=== PATIENT | male | born 1950 | race Caucasian/White ===

== ENCOUNTER 2017-01-04 19:09 | Emergency (ER) | payer MEDICAID, MEDICARE ==
[~2017-01-04] VITALS: Ht 167.6 cm; Wt 71.0 kg
[~2017-01-04 19:09] MED LIST: AMLO1TAB PO; ASPI-664 PO; DICY20TA59 PO; DULA0.75 SQ; ESOM40CA PO; EZET10TA3 PO; GLIM4TAB PO; LANT3I SC; LORA0.5T PO; METO25TA4 PO; SIMV40TA2 PO; ZOLP5TAB6 PO
[2017-01-04 20:19] VITALS: Ht 167.6 cm; Wt 71.0 kg
== END 2017-01-05 04:00 | disposition left against medical advice (07) ==
LOC: E/R 19:09
DX: Z53.21 Procedure and treatment not carried out due to patient leaving prior to being seen by health care provider (principal)

== ENCOUNTER 2017-02-09 19:31 | Emergency (ER) | payer MEDICARE ==
[~2017-02-09] VITALS: Ht 165.1 cm; Wt 69.5 kg
[2017-02-09 19:34] VITALS: Ht 165.1 cm; Wt 69.5 kg
[2017-02-09] MEDS ORDERED: morphine 4 MG/ML VIAL IV STA (22:16)
[2017-02-09 22:39] LABS: ADD SCAN DIFF NO; BASOPHILS % 0.5 % (0.0-2.0); EOSINOPHILS # 0.2 10^3/ul (0.0-0.5); EOSINOPHILS % 2.7 % (0.0-7.0); HEMATOCRIT 43.9 % (42.0-52.0); HEMOGLOBIN 14.9 g/dl (14.0-18.0); LYMPHOCYTES % 34.9 % (15.0-51.0); MEAN CORPUSCULAR HEMOGLOBIN 30.7 pg (29.0-33.0); MEAN CORPUSCULAR HGB CONC 33.9 g/dl (32.0-37.0); MEAN CORPUSCULAR VOLUME 90.5 fl (82.0-101.0); MONOCYTE # 0.5 10^3/ul (0.3-0.9); MONOCYTES % 7.7 % (0.0-11.0); NEUTROPHIL # 3.1 10^3/ul (1.6-7.5); NEUTROPHILS % 53.9 % (39.0-77.0); PLATELET COUNT 251 10^3/UL (140-415); RED BLOOD COUNT 4.85 10^6/ul (4.70-6.10); RED CELL DISTRIBUTION WIDTH 13.7 % (11.5-14.5); WHITE BLOOD COUNT 5.8 10^3/ul (4.8-10.8)
[2017-02-09 22:47] LABS: ADD UMIC YES; URINE BILIRUBIN (Dip) NEGATIVE (NEGATIVE); URINE BLOOD (Dip) 1+ (NEGATIVE); URINE COLOR LT. YELLOW (YELLOW); URINE GLUCOSE (Dip) NEGATIVE (NEGATIVE); URINE KETONES (Dip) NEGATIVE (NEGATIVE); URINE LEUKOCYTE ESTERASE (Dip) NEGATIVE (NEGATIVE); URINE NITRITE (Dip) NEGATIVE (NEGATIVE); URINE TOTAL PROTEIN (Dip) NEGATIVE (NEGATIVE); URINE UROBILINOGEN (Dip) 0.2 E.U./dL (0.1-1.0)
[2017-02-09 22:50] LABS: ALBUMIN 4.3 g/dl (3.3-4.9); INR 0.93; PROTIME 12.5 Sec (12.2-14.2)
[2017-02-09 22:51] LABS: PARTIAL THROMBOPLASTIN TIME 27.5 Sec (25.0-35.0); POTASSIUM 4.3 mmol/L (3.5-5.1)
[2017-02-09 22:53] LABS: ALBUMIN/GLOBULIN RATIO 1.38; BILIRUBIN,INDIRECT 0.6 mg/dl (0-1.1); BILIRUBIN,TOTAL 0.6 mg/dl (0.2-1.3); CREATININE 1.07 mg/dl (0.61-1.24); TOTAL PROTEIN 7.4 g/dl (6.1-8.1)
[2017-02-09 22:54] LABS: CALCIUM 9.3 mg/dl (8.4-10.2)
[2017-02-09] MEDS ORDERED: SOD CHLORIDE 0.9% 100 ML ONE (23:15)
[2017-02-09] MEDS ORDERED: IOHEXOL 100 ML ONE (23:15)
--- NOTE | 2017-02-10 00:11 | RADRPT ---
PROCEDURE: XR Chest. CLINICAL INDICATION: Pain. TECHNIQUE: Single frontal chest x-ray. COMPARISON: 10/18/2016 FINDINGS: Heart is enlarged.. There is minimal bibasilar atelectasis.. No focal infiltrate is seen. There is no pleural effusion. There is no pneumothorax. The osseous structures are unremarkable. IMPRESSION: Cardiomegaly. Minimal bibasilar atelectasis. RPTAT: HMVK .Lele Acosta MD, Date Time Electronically viewed and signed by .Lele Acosta MD, on 02/10/2017 00:11 .K/
--- NOTE | 2017-02-10 01:06 | RADRPT ---
PROCEDURE: CT Angiogram Abdomen and Pelvis with IV contrast. CLINICAL INDICATION: Bilateral flank and back pain. TECHNIQUE: CT scan of the abdomen and pelvis was performed on a multidetector CT scanner. The pat ient was scanned following the uncomplicated administration of 95 cc Omnipaque-300 50 intravenous co ntrast material. 3D, Coronal and sagittal reformatted images were obtained from the axial source im ages. Images were reviewed on a high-resolution PACS workstation. Exam CTDlvol = 31 mGy and DLP = 5 00 mGy-cm. COMPARISON: CT chest 03/13/2016, CT abdomen pelvis 11/23/2013, 11/26/2004 FINDINGS: CTA abdomen/pelvis: The abdominal aorta is normal caliber. There is no aortic aneurysm or dissection. There is redemons trated diffuse aneurysmal wall thickening and irregular plaque with scattered calcifications, increa sed as compared to 11/23/2013. The celiac trunk is patent and normal in appearance. Both the superio r and inferior mesenteric arteries are normal in appearance. Bilateral renal arteries are normal in appearance. The bilateral common iliac arteries moderate plaque with mild stenosis and without occlu hope. The external iliac arteries are normal in appearance. There is mild stenosis of the proximal common femoral arteries. CT abdomen/pelvis: The liver is mildly enlarged and 17.8 cm length and mildly hypodense/fatty.. No intrahepatic lesion s are identified. The gallbladder is normal in appearance. There is no definite biliary ductal dilat ion. Pancreas is unremarkable. Spleen is normal in size and appearance. There are no adrenal mass es. The aorta is unremarkable. Kidneys are normal in appearance without hydronephrosis, mass or calculus. There is normal symmetri c homogeneous renal parenchymal enhancement. There is no perinephric collection. Ureters are of no rmal caliber in appearance. Urinary bladder is unremarkable. There is no obstruction or ileus. The appendix is not visualized. There is no secondary evidence f or appendicitis. There are few colonic diverticuli without evidence for diverticulitis. There is n o free fluid. There is no lymphadenopathy. Limited evaluation lung bases demonstrates bibasilar atelectasis. There punctate parenchymal calcif ications. There are mild degenerate changes of the lumbar spine. IMPRESSION: 1. No abdominal aortic aneurysm or dissection. 2. Increased diffuse abdominal aortic aneurysmal wall thickening with partially calcified plaque. Appearance is suggestive of a chronic aortic hiatus in addition to atherosclerotic plaque. 3. Mild stenosis of the bilateral common iliac arteries and common femoral arteries. 4. Enlarged fatty liver. 5. No obstructive uropathy. Number 6 no bowel obstruction or ileus. 7. Few colonic diverticuli without evidence for diverticulitis. 8. Appendix not identified. No secondary evidence for appendicitis. 9. Mild degenerate changes of the lumbar spine. 10. Bibasilar atelectasis. Lung parenchymal calcifications compatible with granulomas. RPTAT: HMVK .Lele Acosta MD, Date Time Electronically viewed and signed by .Lele Acosta MD, on 02/10/2017 01:06 .K/
[2017-02-10] MEDS ORDERED: CYCL5TAB PO (01:39)
[2017-02-10] MEDS ORDERED: HYDR-906 PO (01:39)
--- NOTE | 2017-02-10 01:53 | ERD ---
ER Documentation Chief Complaint Date/Time DATE: 02/10/17 TIME: 01:41 Chief Complaint abd/back pain x 10 days. worse today HPI 67-year-old male with a history of hypertension and diabetes presenting with back pain for about 10 days. He denies any preceding trauma. He states the pain is in his lower back more on the left than the right, radiating to his groin with an associated burning sensation in his bilateral legs. The pain is worse with sitting, better with lying down. He describes it as an aching, sharp pain, constant, intermittently worse, currently a 10 out of 10. He denies any pain radiating down his legs. No weakness in the lower extremities. No bowel incontinence or urinary retention. He denies any dysuria or hematuria. He recently had a colonoscopy and an endoscopy which only revealed gastritis. ROS All systems reviewed and are negative except as per history of present illness. Medications Home Meds Active Scripts Hydrocodone/Acetaminophen ([place] 5-325 Tablet) 1 Each Tablet, 1 EACH PO Q6 Y for PAIN LEVEL 6-10, #7 TAB Prov:GABE BRADFORD MD 02/10/17 Cyclobenzaprine Hcl* (Cyclobenzaprine Hcl*) 5 Mg Tablet, 5 MG PO Q8H Y for MUSCLE SPASMS, #20 TAB Prov:GABE BRADFORD MD 02/10/17 Reported Medications Zolpidem Tartrate* (Zolpidem Tartrate*) 5 Mg Tablet, 5 MG PO QHS Y for INSOMNIA , #30 TAB 10/18/16 Glimepiride* (Glimepiride*) 4 Mg Tablet, 4 MG PO WITH BREAKFAST DINNE, TAB 10/18/16 Metoprolol Tartrate* (Lopressor*) 25 Mg Tablet, 25 MG PO BID, #60 TAB 10/18/16 Aspirin* (Aspirin* EC) 81 Mg Tablet.dr, 81 MG PO DAILY, TAB 10/18/16 Lorazepam* (Lorazepam*) 0.5 Mg Tablet, 0.5 MG PO BID Y for ANXIETY, TAB 10/18/16 Ezetimibe* (Zetia*) 10 Mg Tablet, 10 MG PO DAILY, TAB 10/18/16 Insulin Glargine* (Lantus*) 100 Unit/Ml Soln, 15 UNIT SC BID, #1 VIAL 10/18/16 Simvastatin* (Zocor*) 40 Mg Tablet, 40 MG PO QHS, #30 TAB 10/18/16 Amlodipine Bes/Olmesartan Med (Sofia 10-40 mg Tablet) 1 Each Tablet, 1 EACH PO DAILY, TAB 10/18/16 Dicyclomine Hcl* (Bentyl*) 20 Mg Tablet, 20 MG PO TID, TAB 10/18/16 Dulaglutide (Trulicity) 0.75 Mg/0.5 Ml Pen.injctr, 0.75 MG SQ Q2 WEEKS 10/18/16 Esomeprazole Mag Trihydrate (Nexium) 40 Mg Capsule.dr, 40 MG PO DAILY, #30 CAP 10/18/16 Allergies Allergies: Coded Allergies: No Known Drug Allergy (Verified Allergy, Unknown, 02/09/17) PMhx/Soc History of Surgery: No Anesthesia Reaction: No Hx Neurological Disorder: No Hx Respiratory Disorders: No Hx Cardiac Disorders: Yes (Hypertension) Hx Psychiatric Problems: No Hx Miscellaneous Medical Probl: Yes (DM) Hx Alcohol Use: No Hx Substance Use: No Hx Tobacco Use: Yes Smoking Status: Current every day smoker FmHx Family History: No diabetes Physical Exam Vitals Vital Signs Date Time Temp Pulse Resp B/P Pulse Ox O2 Delivery O2 Flow Rate FiO2 02/10/17 00:27 65 16 138/72 98 Room Air 02/09/17 19:34 98.5 94 20 149/78 100 Physical Exam Const: Mild distress secondary to pain, nontoxic Head: Atraumatic Eyes: Normal Conjunctiva ENT: Normal External Ears, Nose and Mouth. Neck: Full range of motion. No meningismus. Resp: Clear to auscultation bilaterally Cardio: Regular rate and rhythm, no murmurs. 2+ DP and PT pulses. 2+ radial pulses bilaterally. Abd: Soft, non tender, non distended. Normal bowel sounds Skin: No petechiae or rashes Back: No flank tenderness. Midline tenderness to palpation of the upper lumbar spine with paraspinal muscle tenderness Ext: No cyanosis, or edema Neur: Awake and alert and oriented 3, cranial nerves intact, strength and sensations intact in all 4 extremities, antalgic gait Psych: Normal Mood and Affect Result Diagram: 02/09/17222202/09/172222 Results 24 hrs Laboratory Tests Test 02/09/17 22:23 Activated Partial Thromboplast Time 27.5Sec Alanine Aminotransferase (ALT/SGPT) 36IU/L Albumin 4.3g/dl Albumin/Globulin Ratio 1.38 Alkaline Phosphatase 54IU/L Anion Gap 15 Aspartate Amino Transf (AST/SGOT) 21IU/L Basophils # 0.010^3/ul Basophils % 0.5% Blood Urea Nitrogen 26mg/dl Calcium Level 9.3mg/dl Carbon Dioxide Level 31mmol/L Chloride Level 100mmol/L Creatinine 1.07mg/dl Direct Bilirubin 0.00mg/dl Eosinophils # 0.210^3/ul Eosinophils % 2.7% Globulin 3.10g/dl Glucose Level 146mg/dl Hematocrit 43.9% Hemoglobin 14.9g/dl INR International Normalized Ratio 0.93 Indirect Bilirubin 0.6mg/dl Lipase 109U/L Lymphocytes # 2.010^3/ul Lymphocytes % 34.9% Mean Corpuscular Hemoglobin 30.7pg Mean Corpuscular Hemoglobin Concent 33.9g/dl Mean Corpuscular Volume 90.5fl Mean Platelet Volume 11.0fl Monocytes # 0.510^3/ul Monocytes % 7.7% Neutrophils # 3.110^3/ul Neutrophils % 53.9% Nucleated Red Blood Cells # 0.010^3/ul Nucleated Red Blood Cells % 0.0/100WBC Platelet Count 27508^3/UL Potassium Level 4.3mmol/L Prothrombin Time 12.5Sec Prothrombin Time Ratio 1.0 Red Blood Count 4.8510^6/ul Red Cell Distribution Width 13.7% Sodium Level 142mmol/L Total Bilirubin 0.6mg/dl Total Protein 7.4g/dl Urine Bilirubin NEGATIVE Urine Clarity CLEAR Urine Color LT. YELLOW Urine Glucose NEGATIVE% Urine Hemoglobin 1+ Urine Ketones NEGATIVE Urine Leukocyte Esterase NEGATIVE Urine Microscopic RBC 2-5/HPF Urine Microscopic WBC NONE SEEN/HPF Urine Nitrite NEGATIVE Urine Specific [place] 1.020 Urine Total Protein NEGATIVE Urine Urobilinogen 0.2 E.U./dL Urine pH 6.0 White Blood Count 5.810^3/ul Current Medications Medications (Trade) Dose Ordered Sig/Danita Route PRN Reason Start Time Stop Time Status Last Admin Dose Admin Morphine Sulfate (morphine) 4 mg ONCE STAT IV 02/09/17 22:16 02/09/17 22:21 DC 02/09/17 22:35 IV Flush 10 ml 10 ml STK-MED ONCE .ROUTE 02/09/17 23:15 02/09/17 23:16 DC 02/09/17 23:47 Sodium Chloride 100 ml @ ud STK-MED ONCE .ROUTE 02/09/17 23:15 02/09/17 23:16 DC 02/09/17 23:48 Iohexol (Omnipaque) 100 ml @ ud STK-MED ONCE .ROUTE 02/09/17 23:15 02/09/17 23:16 DC 02/09/17 23:48 Procedures/MDM EMERGENT LABS AND DIAGNOSTIC STUDIES: Lab Results above were reviewed and interpreted by me. CBC and BMP were unremarkable Urinalysis showed microscopic hematuria but no infection EKG: Rate/Rhythm: [Normal Sinus Rhythm] QRS, ST, T-waves: [No changes consistent w/ acute ischemia] Impression: [No evidence of ischemia or arrhythmia] Radiology Results as interpreted by Radiology below were reviewed by Royce Bradford MD: Chest x-ray showed no acute abnormalities CT angiogram of the abdomen and pelvis: IMPRESSION: 1. No abdominal aortic aneurysm or dissection. 2. Increased diffuse abdominal aortic aneurysmal wall thickening with partially calcified plaque. Appearance is suggestive of a chronic aortic hiatus in addition to atherosclerotic plaque. 3. Mild stenosis of the bilateral common iliac arteries and common femoral arteries. 4. Enlarged fatty liver. 5. No obstructive uropathy. Number 6 no bowel obstruction or ileus. 7. Few colonic diverticuli without evidence for diverticulitis. 8. Appendix not identified. No secondary evidence for appendicitis. 9. Mild degenerate changes of the lumbar spine. 10. Bibasilar atelectasis. Lung parenchymal calcifications compatible with granulomas. Initial Nursing notes reviewed. Previous Medical Records requested via the Electronic Health Record. EMERGENCY DEPARTMENT COURSE / MEDICAL DECISION MAKING: The patient is neurovascularly intact on exam with unremarkable vitals. His back pain is concerning for possible renal colic versus aortic dissection versus musculoskeletal etiology. I have a low suspicion for spinal tumor as the patient has no history of cancer, night sweats, or weight loss. I have a low suspicion for bone or disc infection, cauda equina, retroperitoneal hemorrhage, cord compression, acute spinal fracture, or abscess. Given the patient's age and smoking history, CT angiogram of the abdomen and pelvis were done to evaluate for dissection and was negative for dissection. He has no evidence of kidney stones. There is no evidence of pyelonephritis. I will discharge the patient with a few Geraldine's and muscle relaxants. I advised he follow-up with his primary care doctor for further workup of possible spinal etiology of his pain. Currently he has no spinal emergency. I believe the patient is stable for continued outpatient follow up with their PCP. Return precautions were discussed in detail. I recommended rest and analgesics. Patient's blood pressure was elevated (>120/80) but appears stable without evidence of hypertensive emergency or urgency. The patient was counseled about the risks of hypertension and urged to pursue outpatient monitoring and therapy within a week with their primary care physician. Departure Diagnosis: Primary Impression: Back pain Back pain location: low back pain Chronicity: acute Back pain laterality: bilateral Sciatica presence: without sciatica Qualified Code: M54.5 - Acute bilateral low back pain without sciatica Condition: Stable Patient Instructions: Back Pain (Acute Or Chronic) Additional Instructions: Call your primary care doctor tomorrow for an appointment within the next 2 days for a follow-up. Return to the ER for any worsening symptoms. GABE BRADFORD MD Feb 10, 2017 01:53
[2017-02-10] MEDS ORDERED: HYDROCODONE/APAP (5/325) TAB PO ONE (02:00)
[2017-02-10 03:03] VITALS: BP 144/76; PULSE 64; RESP 16; TEMP 98
== END 2017-02-10 03:04 | disposition home or self-care (01) ==
LOC: E/R 19:31
DX: M54.5 Low back pain (principal); I10 Essential (primary) hypertension; E11.9 Type 2 diabetes mellitus without complications; F17.210 Nicotine dependence, cigarettes, uncomplicated; R10.9 Unspecified abdominal pain; Z79.82 Long term (current) use of aspirin; Z79.84 Long term (current) use of oral hypoglycemic drugs; Z79.4 Long term (current) use of insulin
CPT/HCPCS: 36415; 71010; 75635; 80053; 81001; 83690; 85025; 85610; 85730; 96374; 99285; J2270; Q9967; 81003

== ENCOUNTER 2017-02-14 20:43 | Emergency (ER) | payer SELFPAY ==
[~2017-02-14] VITALS: Ht 172.7 cm; Wt 68.0 kg
[~2017-02-14 20:43] MED LIST changes: +CYCL5TAB PO; +HYDR-906 PO
[2017-02-14 21:57] VITALS: Ht 172.7 cm; Wt 68.0 kg
== END 2017-02-15 00:10 | disposition left against medical advice (07) ==
LOC: E/R 20:43
DX: Z53.21 Procedure and treatment not carried out due to patient leaving prior to being seen by health care provider (principal)

== ENCOUNTER 2017-08-24 10:13 | Emergency (ER) | payer MEDICARE ==
[~2017-08-24] VITALS: Ht 157.5 cm; Wt 70.5 kg
[~2017-08-24 10:13] MED LIST changes: -ZOLP5TAB6 PO; +ZOLP5TAB7 PO
[2017-08-24 10:18] VITALS: Ht 157.5 cm; Wt 70.5 kg
[2017-08-24] MEDS ORDERED: morphine 4 MG/ML VIAL IV STA (10:40)
[2017-08-24] MEDS ORDERED: ONDANSETRON 4 MG INJ IV STA (10:40)
[2017-08-24] MEDS ORDERED: SOD CHLORIDE 0.9% 1,000 ML IV STA (10:40)
[2017-08-24 11:23] LABS: BASOPHILS % 0.2 % (0.0-2.0); EOSINOPHILS # 0.1 10^3/ul (0.0-0.5); EOSINOPHILS % 2.7 % (0.0-7.0); HEMATOCRIT 46.6 % (42.0-52.0); HEMOGLOBIN 15.3 g/dl (14.0-18.0); LYMPHOCYTES # 0.9 10^3/ul (0.8-2.9); MEAN CORPUSCULAR HEMOGLOBIN 29.5 pg (29.0-33.0); MEAN CORPUSCULAR HGB CONC 32.8 g/dl (32.0-37.0); MEAN CORPUSCULAR VOLUME 89.8 fl (82.0-101.0); MEAN PLATELET VOLUME 10.9 fl (7.4-10.4); MONOCYTE # 0.3 10^3/ul (0.3-0.9); MONOCYTES % 7.1 % (0.0-11.0); NEUTROPHILS % 68.5 % (39.0-77.0); PLATELET COUNT 236 10^3/UL (140-415); RED BLOOD COUNT 5.19 10^6/ul (4.70-6.10); WHITE BLOOD COUNT 4.4 10^3/ul (4.8-10.8)
[2017-08-24 11:30] LABS: ADD UMIC YES; UR ASCORBIC ACID NEGATIVE (NEGATIVE); UR BILIRUBIN (Dip) NEGATIVE (NEGATIVE); UR BLOOD (Dip) 1+ mg/dL (NEGATIVE); UR CLARITY CLEAR (CLEAR); UR COLOR YELLOW (YELLOW); UR GLUCOSE (Dip) 3+ mg/dL (NEGATIVE); UR KETONES (Dip) NEGATIVE (NEGATIVE); UR LEUKOCYTE ESTERASE (Dip) NEGATIVE Leu/ul (NEGATIVE); UR NITRITE (Dip) NEGATIVE (NEGATIVE); UR RBC 1 /HPF (0-5); UR SPECIFIC GRAVITY (Dip) 1.012 (1.003-1.030); UR TOTAL PROTEIN (Dip) NEGATIVE (NEGATIVE); UR UROBILINOGEN (Dip) NEGATIVE (NEGATIVE)
[2017-08-24 11:41] LABS: ALBUMIN 4.4 g/dl (3.3-4.9); ALBUMIN/GLOBULIN RATIO 1.41; CALCIUM 9.2 mg/dl (8.4-10.2); CREATININE 0.94 mg/dl (0.61-1.24); POTASSIUM 4.3 mmol/L (3.5-5.1); TOTAL PROTEIN 7.5 g/dl (6.1-8.1)
--- NOTE | 2017-08-24 12:23 | RADRPT ---
PROCEDURE: CT abdomen and pelvis without contrast. CLINICAL INDICATION: Left flank pain TECHNIQUE: CT scan of the abdomen and pelvis without contrast was performed and is reconstructed a t 2.5 mm contiguous axial intervals from the dome of the diaphragm to the inferior pubic rami.. The patient was scanned without intravenous contrast. Sagittal and coronal reformatted images were obt ained from the axial source images. The calculated radiation dose measures 467 mGy centimeters. The CTDI measures 8 mGy. Individualized dose optimization technique was used for the performance of this exam. This included 1. Automated exposure control. 2. Adjustment of the mA and / or kV according to the patient's size. 3. Use of iterative reconstructed technique. COMPARISON: CT abdomen pelvis February 09, 2017 FINDINGS: The lung bases are clear of any infiltrate or nodule. No effusion is seen. Mild bullous disease is seen at the right lung base. Calcified granuloma is noted in the lingula. The liver is of normal size, contour and attenuation with no mass or ductal dilatation. No gallston es are visualized. No splenic, adrenal or pancreatic abnormalities present. Kidneys are of normal size and contour. No hydronephrosis, calculus or masses seen. Ureters are o f normal course and caliber with no stone. No bladder mass or stone is present. Prostate and semina l vesicles are normal. There is no aneurysm. No adenopathy is present. No bowel mass or obstruction is present. The appendix is cough the visualized, however, no inflam ed appendix is seen.. No phlegmon, ascites or pneumoperitoneum is visualized. The osseous structures are intact. IMPRESSION: No evidence of urolithiasis, obstructive uropathy, diverticulitis or appendicitis. Mild bullous disease right lung base. Old granulomatous disease. .Tello Mcneill MD, MD Date Time Electronically viewed and signed by .Tello Mcneill MD, MD on 08/24/2017 12:22 .A/
[2017-08-24] MEDS ORDERED: HYDR-906 PO (12:40)
[2017-08-24] MEDS ORDERED: IBUP400T22 PO (12:40)
--- NOTE | 2017-08-24 12:48 | ERD ---
ER Documentation Chief Complaint Date/Time DATE: 08/24/17 TIME: 12:46 Chief Complaint LEFT LOWER BACK PAIN HPI 67-year-old male history of kidney stones presents with left-sided flank pain radiating to the left groin that started last night when he was laying in bed. Patient describes diffuse pain was that is achy, worse with movement. Denies fevers or chills. Denies hematuria, dysuria, urgency or frequency. ROS All systems reviewed and are negative except as per history of present illness. Medications Home Meds Active Scripts Hydrocodone/Acetaminophen ([place] 5-325 Tablet) 1 Each Tablet, 1 TAB PO Q6H Y for PAIN, #15 TAB Prov:ANNAMARIE MURILLO PA-C 08/24/17 Ibuprofen* (Motrin*) 400 Mg Tab, 400 MG PO Q6, #30 TAB Prov:ANNAMARIE MURILLO PA-C 08/24/17 Hydrocodone/Acetaminophen ([place] 5-325 Tablet) 1 Each Tablet, 1 EACH PO Q6 Y for PAIN LEVEL 6-10, #7 TAB Prov:GABE AYERS MD 02/10/17 Cyclobenzaprine Hcl* (Cyclobenzaprine Hcl*) 5 Mg Tablet, 5 MG PO Q8H Y for MUSCLE SPASMS, #20 TAB Prov:GABE AYERS MD 02/10/17 Reported Medications Zolpidem Tartrate* (Zolpidem Tartrate*) 5 Mg Tablet, 5 MG PO QHS Y for INSOMNIA , #30 TAB 10/18/16 Glimepiride* (Glimepiride*) 4 Mg Tablet, 4 MG PO WITH BREAKFAST DINNE, TAB 10/18/16 Metoprolol Tartrate* (Lopressor*) 25 Mg Tablet, 25 MG PO BID, #60 TAB 10/18/16 Aspirin* (Aspirin* EC) 81 Mg Tablet.dr, 81 MG PO DAILY, TAB 10/18/16 Lorazepam* (Lorazepam*) 0.5 Mg Tablet, 0.5 MG PO BID Y for ANXIETY, TAB 10/18/16 Ezetimibe* (Zetia*) 10 Mg Tablet, 10 MG PO DAILY, TAB 10/18/16 Insulin Glargine* (Lantus*) 100 Unit/Ml Soln, 15 UNIT SC BID, #1 VIAL 10/18/16 Simvastatin* (Zocor*) 40 Mg Tablet, 40 MG PO QHS, #30 TAB 10/18/16 Amlodipine Bes/Olmesartan Med (Sofia 10-40 mg Tablet) 1 Each Tablet, 1 EACH PO DAILY, TAB 10/18/16 Dicyclomine Hcl* (Bentyl*) 20 Mg Tablet, 20 MG PO TID, TAB 10/18/16 Dulaglutide (Trulicity) 0.75 Mg/0.5 Ml Pen.injctr, 0.75 MG SQ Q2 WEEKS 10/18/16 Esomeprazole Mag Trihydrate (Nexium) 40 Mg Capsule.dr, 40 MG PO DAILY, #30 CAP 10/18/16 Allergies Allergies: Coded Allergies: No Known Drug Allergy (Verified Allergy, Unknown, 02/09/17) PMhx/Soc History of Surgery: No Anesthesia Reaction: No Hx Neurological Disorder: No Hx Respiratory Disorders: No Hx Cardiac Disorders: Yes (Hypertension) Hx Psychiatric Problems: No Hx Miscellaneous Medical Probl: Yes (DM) Hx Alcohol Use: Yes (OCCAS) Hx Substance Use: No Hx Tobacco Use: Yes Smoking Status: Current some day smoker Physical Exam Vitals Vital Signs Date Time Temp Pulse Resp B/P Pulse Ox O2 Delivery O2 Flow Rate FiO2 08/24/17 10:18 97.7 94 18 149/72 98 Physical Exam General: Well-developed, well-nourished. The patient appears in no acute distress. HEENT: Head is normocephalic, atraumatic. No scleral icterus. Neck: Supple. Nontender. Lungs: Clear to auscultation. Normal air movement. Heart: Regular rate and rhythm. S1 and S2 are normal. No murmurs, gallops, or rubs. Abdomen: Soft, nontender, nondistended. Bowel sounds are normoactive. Back: There is no midline tenderness, crepitus, soft tissue and lateral lumbar back pain with palpation on the left side. Extremities: No clubbing or cyanosis. Normal pulses. Moving extremities x 4. No weakness. Neurologic: Alert and oriented 3. No focal deficits. Skin: Normal turgor. No rash or lesions. Result Diagram: 08/24/17 1100 08/24/17 1100 Results 24 hrs Laboratory Tests Test 08/24/17 11:00 White Blood Count 4.410^3/ul Red Blood Count 5.1910^6/ul Hemoglobin 15.3g/dl Hematocrit 46.6% Mean Corpuscular Volume 89.8fl Mean Corpuscular Hemoglobin 29.5pg Mean Corpuscular Hemoglobin Concent 32.8g/dl Red Cell Distribution Width 14.0% Platelet Count 88136^3/UL Mean Platelet Volume 10.9fl Neutrophils % 68.5% Lymphocytes % 21.0% Monocytes % 7.1% Eosinophils % 2.7% Basophils % 0.2% Nucleated Red Blood Cells % 0.0/100WBC Neutrophils # 3.010^3/ul Lymphocytes # 0.910^3/ul Monocytes # 0.310^3/ul Eosinophils # 0.110^3/ul Basophils # 0.010^3/ul Nucleated Red Blood Cells # 0.010^3/ul Urine Color YELLOW Urine Clarity CLEAR Urine pH 6.0 Urine Specific [place] 1.012 Urine Ketones NEGATIVEmg/dL Urine Nitrite NEGATIVEmg/dL Urine Bilirubin NEGATIVEmg/dL Urine Urobilinogen NEGATIVEmg/dL Urine Leukocyte Esterase NEGATIVELeu/ul Urine Microscopic RBC 1/HPF Urine Microscopic WBC 0/HPF Urine Hemoglobin 1+mg/dL Urine Glucose 3+mg/dL Urine Total Protein NEGATIVEmg/dl Sodium Level 141mmol/L Potassium Level 4.3mmol/L Chloride Level 105mmol/L Carbon Dioxide Level 28mmol/L Anion Gap 12 Blood Urea Nitrogen 21mg/dl Creatinine 0.94mg/dl Glucose Level 259mg/dl Calcium Level 9.2mg/dl Total Bilirubin 1.0mg/dl Direct Bilirubin 0.00mg/dl Indirect Bilirubin 1.0mg/dl Aspartate Amino Transf (AST/SGOT) 24IU/L Alanine Aminotransferase (ALT/SGPT) 39IU/L Alkaline Phosphatase 54IU/L Total Protein 7.5g/dl Albumin 4.4g/dl Globulin 3.10g/dl Albumin/Globulin Ratio 1.41 Lipase 171U/L Current Medications Medications (Trade) Dose Ordered Sig/Danita Route PRN Reason Start Time Stop Time Status Last Admin Dose Admin Sodium Chloride (NS) 1,000 ml @ 1,000 mls/hr Q1H STAT IV 08/24/17 10:40 08/24/17 11:39 DC 08/24/17 11:00 Morphine Sulfate (morphine) 4 mg ONCE STAT IV 08/24/17 10:40 08/24/17 10:43 DC 08/24/17 10:59 Ondansetron HCl (Zofran Inj) 4 mg ONCE STAT IV 08/24/17 10:40 08/24/17 10:43 DC 08/24/17 10:59 Radiology Main Line: [phone] DIAGNOSTIC IMAGING REPORT Patient: AKIN SERVIN : 1950 Age: 67 Sex: M MR #: [id number] DOS: 08/24/17 1043 Ordering MD: ANNAMARIE MURILLO PA-C Location: [facility] Room/Bed: PROCEDURE: CT abdomen and pelvis without contrast. CLINICAL INDICATION: Left flank pain TECHNIQUE: CT scan of the abdomen and pelvis without contrast was performed and is reconstructed at 2.5 mm contiguous axial intervals from the dome of the diaphragm to the inferior pubic rami.. The patient was scanned without intravenous contrast. Sagittal and coronal reformatted images were obtained from the axial source images. The calculated radiation dose measures 467 mGy centimeters. The CTDI measures 8 mGy. Individualized dose optimization technique was used for the performance of this exam. This included 1. Automated exposure control. 2. Adjustment of the mA and / or kV according to the patient's size. 3. Use of iterative reconstructed technique. COMPARISON: CT abdomen pelvis February 09, 2017 FINDINGS: The lung bases are clear of any infiltrate or nodule. No effusion is seen. Mild bullous disease is seen at the right lung base. Calcified granuloma is noted in the lingula. The liver is of normal size, contour and attenuation with no mass or ductal dilatation. No gallstones are visualized. No splenic, adrenal or pancreatic abnormalities present. Kidneys are of normal size and contour. No hydronephrosis, calculus or masses seen. Ureters are of normal course and caliber with no stone. No bladder mass or stone is present. Prostate and seminal vesicles are normal. There is no aneurysm. No adenopathy is present. No bowel mass or obstruction is present. The appendix is cough the visualized , however, no inflamed appendix is seen.. No phlegmon, ascites or pneumoperitoneum is visualized. The osseous structures are intact. IMPRESSION: No evidence of urolithiasis, obstructive uropathy, diverticulitis or appendicitis. Mild bullous disease right lung base. Old granulomatous disease. .Tello Mcneill MD, MD Date Time Electronically viewed and signed by .Tello Mcneill MD, MD on 08/24/2017 12: 22 .A/ CC: ANNAMARIE MURILLO PA-C Procedures/MDM MDM: 67-year-old male comes in with left-sided back pain, patient's pain is most likely musculoskeletal. CT abdomen and pelvis was negative for renal stone , ureteral stone, signs of infection, masses, diverticulitis and among others. All labs are unremarkable. He will be discharged home with pain medication. Patient's blood pressure was elevated (>120/80) but appears stable without evidence of hypertension emergency or urgency. The patient was counseled about the risks of hypertension and urged to pursue outpatient monitoring and therapy within a week with their primary care physician. Departure Diagnosis: Primary Impression: Back pain Condition: Good Patient Instructions: Back Sprain/Strain ANNAMARIE MURILLO PA-C Aug 24, 2017 12:48
== END 2017-08-24 13:03 | disposition home or self-care (01) ==
LOC: FTE 10:13
DX: M54.5 Low back pain (principal); I10 Essential (primary) hypertension; E11.9 Type 2 diabetes mellitus without complications; F17.210 Nicotine dependence, cigarettes, uncomplicated; Z79.4 Long term (current) use of insulin; Z79.82 Long term (current) use of aspirin; Z79.84 Long term (current) use of oral hypoglycemic drugs
CPT/HCPCS: 36415; 74176; 80053; 81001; 83690; 85025; 96374; 96375; 99285; J2270; J2405; J7030

== ENCOUNTER 2017-11-09 09:44 | Emergency (ER) | payer MEDICARE, OTHER ==
[~2017-11-09] VITALS: Ht 167.6 cm; Wt 69.0 kg
[~2017-11-09 09:44] MED LIST changes: +IBUP400T22 PO
[2017-11-09 09:48] VITALS: Ht 167.6 cm; Wt 69.0 kg
[2017-11-09] MEDS ORDERED: DICYCLOMINE 20 MG INJ IM ONE (11:00)
[2017-11-09] MEDS ORDERED: ONDANSETRON 4 MG INJ IV STA (11:00)
[2017-11-09] MEDS ORDERED: morphine 4 MG/ML VIAL IV STA (11:00)
[2017-11-09] MEDS ORDERED: SOD CHLORIDE 0.9% 1,000 ML IV STA (11:00)
[2017-11-09 11:51] LABS: BASOPHILS % 0.7 % (0.0-2.0); EOSINOPHILS # 0.1 10^3/ul (0.0-0.5); EOSINOPHILS % 1.5 % (0.0-7.0); HEMATOCRIT 44.6 % (42.0-52.0); HEMOGLOBIN 15.3 g/dl (14.0-18.0); LYMPHOCYTES # 1.2 10^3/ul (0.8-2.9); LYMPHOCYTES % 25.7 % (15.0-51.0); MEAN CORPUSCULAR HEMOGLOBIN 30.3 pg (29.0-33.0); MEAN CORPUSCULAR HGB CONC 34.3 g/dl (32.0-37.0); MEAN CORPUSCULAR VOLUME 88.3 fl (82.0-101.0); MEAN PLATELET VOLUME 10.8 fl (7.4-10.4); MONOCYTE # 0.3 10^3/ul (0.3-0.9); MONOCYTES % 6.8 % (0.0-11.0); NEUTROPHILS % 65.3 % (39.0-77.0); PLATELET COUNT 218 10^3/UL (140-415); RED BLOOD COUNT 5.05 10^6/ul (4.70-6.10); RED CELL DISTRIBUTION WIDTH 13.9 % (11.5-14.5); WHITE BLOOD COUNT 4.6 10^3/ul (4.8-10.8)
--- NOTE | 2017-11-09 11:54 | RADRPT ---
PROCEDURE: CT abdomen and pelvis without contrast. CLINICAL INDICATION: Abdominal Pain TECHNIQUE: CT scan of the abdomen and pelvis without contrast was performed and is reconstructed a t 2.5 mm contiguous axial intervals from the dome of the diaphragm to the inferior pubic rami.. The patient was scanned without intravenous contrast. Sagittal and coronal reformatted images were obt ained from the axial source images. The calculated radiation dose measures 476 mGy centimeters. The CTDI measures 8 mGy. Individualized dose optimization technique was used for the performance of this exam. This included 1. Automated exposure control. 2. Adjustment of the mA and / or kV according to the patient's size. 3. Use of iterative reconstructed technique. COMPARISON: CT abdomen pelvis August 04, 2017 FINDINGS: The lung bases are clear of any infiltrate or nodule. No effusion is seen. Calcified granulomas see n in the inferior segment of the lingula. The liver is of normal size, contour and attenuation with no mass or ductal dilatation. No gallston es are visualized. No splenic, adrenal or pancreatic abnormalities present. Kidneys are of normal size and contour. No hydronephrosis, calculus or masses seen. Ureters are o f normal course and caliber with no stone. No bladder mass or stone is present. Prostate and semina l vesicles are not enlarged. There is a probable TURP defect. There is no aneurysm. No adenopathy is present. No bowel mass or obstruction is present. The appendix is not confidently visualized, however, no inflamed appendix is seen.. No phlegmon, ascites or pneumoperitoneum is visualized. The osseous structures are intact. IMPRESSION: No evidence of urolithiasis, obstructive uropathy, diverticulitis or appendicitis. Question TURP defect prostate. Clinical correlation suggested. Old granulomatous disease. .Tello Mcneill MD, Date Time Electronically viewed and signed by .Tello Mcneill MD, MD on 11/09/2017 11:53 .A/
[2017-11-09 12:08] LABS: ALBUMIN 4.2 g/dl (3.3-4.9); ALBUMIN/GLOBULIN RATIO 1.44; CALCIUM 9.5 mg/dl (8.4-10.2); CREATININE 1.01 mg/dl (0.61-1.24); POTASSIUM 4.5 mmol/L (3.5-5.1); TOTAL PROTEIN 7.1 g/dl (6.1-8.1)
[2017-11-09] MEDS ORDERED: ONDA4TAB14 PO (12:44)
[2017-11-09] MEDS ORDERED: DICY10CA60 PO (12:44)
[2017-11-09 13:15] VITALS: BP 139/71; PULSE 73; RESP 14
--- NOTE | 2017-11-09 13:23 | ERD ---
ER Documentation Chief Complaint Chief Complaint abd pain with diarrhea x 5 days HPI This is a 67-year-old male who presents the emergency room with abdominal pain. He has a history of diabetes. The patient scars approximately 3-4 days of symptoms that include mild nausea, nonbloody and bilious emesis, loose watery stool. He describes 8 out of 10 cramping abdominal pain. No recent travel, sick contacts, antibiotics. ROS All systems reviewed and are negative except as per history of present illness. Medications Home Meds Active Scripts Ondansetron (Ondansetron Odt) 4 Mg Tab.rapdis, 4 MG PO Q6H Y for NAUSEA AND/OR VOMITING, #30 TAB Prov:NELIDA GOLDSMITH MD 11/09/17 Dicyclomine Hcl* (Bentyl*) 10 Mg Capsule, 10 MG PO QID Y for abdominal cramping , #30 CAP Prov:NELIDA GOLDSMITH MD 11/09/17 Hydrocodone/Acetaminophen ([place] 5-325 Tablet) 1 Each Tablet, 1 TAB PO Q6H Y for PAIN, #15 TAB Prov:ANNAMARIE MURILLO PA-C 08/24/17 Ibuprofen* (Motrin*) 400 Mg Tab, 400 MG PO Q6, #30 TAB Prov:ANNAMARIE MURILLO PA-C 08/24/17 Hydrocodone/Acetaminophen ([place] 5-325 Tablet) 1 Each Tablet, 1 EACH PO Q6 Y for PAIN LEVEL 6-10, #7 TAB Prov:GABE AYERS MD 02/10/17 Cyclobenzaprine Hcl* (Cyclobenzaprine Hcl*) 5 Mg Tablet, 5 MG PO Q8H Y for MUSCLE SPASMS, #20 TAB Prov:GABE AYERS MD 02/10/17 Reported Medications Zolpidem Tartrate* (Zolpidem Tartrate*) 5 Mg Tablet, 5 MG PO QHS Y for INSOMNIA , #30 TAB 10/18/16 Glimepiride* (Glimepiride*) 4 Mg Tablet, 4 MG PO WITH BREAKFAST DINNE, TAB 10/18/16 Metoprolol Tartrate* (Lopressor*) 25 Mg Tablet, 25 MG PO BID, #60 TAB 10/18/16 Aspirin* (Aspirin* EC) 81 Mg Tablet.dr, 81 MG PO DAILY, TAB 10/18/16 Lorazepam* (Lorazepam*) 0.5 Mg Tablet, 0.5 MG PO BID Y for ANXIETY, TAB 10/18/16 Ezetimibe* (Zetia*) 10 Mg Tablet, 10 MG PO DAILY, TAB 10/18/16 Insulin Glargine* (Lantus*) 100 Unit/Ml Soln, 15 UNIT SC BID, #1 VIAL 10/18/16 Simvastatin* (Zocor*) 40 Mg Tablet, 40 MG PO QHS, #30 TAB 10/18/16 Amlodipine Bes/Olmesartan Med (Sofia 10-40 mg Tablet) 1 Each Tablet, 1 EACH PO DAILY, TAB 10/18/16 Dicyclomine Hcl* (Bentyl*) 20 Mg Tablet, 20 MG PO TID, TAB 10/18/16 Dulaglutide (Trulicity) 0.75 Mg/0.5 Ml Pen.injctr, 0.75 MG SQ Q2 WEEKS 10/18/16 Esomeprazole Mag Trihydrate (Nexium) 40 Mg Capsule.dr, 40 MG PO DAILY, #30 CAP 10/18/16 Allergies Allergies: Coded Allergies: No Known Drug Allergy (Verified Allergy, Unknown, 02/09/17) PMhx/Soc History of Surgery: Yes (kyra cataracts, prostate, appendectomy) Anesthesia Reaction: No Hx Neurological Disorder: No Hx Respiratory Disorders: No Hx Cardiac Disorders: No Hx Psychiatric Problems: No Hx Miscellaneous Medical Probl: Yes (diabetic) Hx Alcohol Use: No Hx Substance Use: No Hx Tobacco Use: Yes Smoking Status: Light tobacco smoker FmHx Family History: No diabetes Physical Exam Vitals Vital Signs Date Time Temp Pulse Resp B/P Pulse Ox O2 Delivery O2 Flow Rate FiO2 11/09/17 13:15 73 14 139/71 100 Room Air 11/09/17 09:48 98.1 105 18 146/80 98 Physical Exam General: Well developed, well nourished, no acute distress Head: Normocephalic, atraumatic. Eyes: Pupils equally reactive, EOM intact ENT: Moist mucous membranes Neck: Supple, no lymphadenopathy Respiratory: Lungs clear bilaterally, no distress Cardiovascular: RRR, no murmurs, rubs, or gallops Abdominal: Soft but mild generalized abdominal tenderness without rebound or guarding : Deferred MSK: No edema, no unilateral swelling, 5/5 strength Neurologic: Alert and oriented, moving all extremities, normal speech, no focal weakness, no cerebellar signs Skin: No rash Psych: Normal mood Result Diagram: 11/09/17 1130 11/09/17 1130 Results 24 hrs Laboratory Tests Test 11/09/17 11:30 White Blood Count 4.610^3/ul Red Blood Count 5.0510^6/ul Hemoglobin 15.3g/dl Hematocrit 44.6% Mean Corpuscular Volume 88.3fl Mean Corpuscular Hemoglobin 30.3pg Mean Corpuscular Hemoglobin Concent 34.3g/dl Red Cell Distribution Width 13.9% Platelet Count 77779^3/UL Mean Platelet Volume 10.8fl Neutrophils % 65.3% Lymphocytes % 25.7% Monocytes % 6.8% Eosinophils % 1.5% Basophils % 0.7% Nucleated Red Blood Cells % 0.0/100WBC Neutrophils # 3.010^3/ul Lymphocytes # 1.210^3/ul Monocytes # 0.310^3/ul Eosinophils # 0.110^3/ul Basophils # 0.010^3/ul Nucleated Red Blood Cells # 0.010^3/ul Sodium Level 146mmol/L Potassium Level 4.5mmol/L Chloride Level 104mmol/L Carbon Dioxide Level 30mmol/L Anion Gap 17 Blood Urea Nitrogen 14mg/dl Creatinine 1.01mg/dl Glucose Level 115mg/dl Calcium Level 9.5mg/dl Total Bilirubin 1.0mg/dl Direct Bilirubin 0.00mg/dl Indirect Bilirubin 1.0mg/dl Aspartate Amino Transf (AST/SGOT) 23IU/L Alanine Aminotransferase (ALT/SGPT) 48IU/L Alkaline Phosphatase 56IU/L Total Protein 7.1g/dl Albumin 4.2g/dl Globulin 2.90g/dl Albumin/Globulin Ratio 1.44 Lipase 170U/L Current Medications Medications (Trade) Dose Ordered Sig/Danita Route PRN Reason Start Time Stop Time Status Last Admin Dose Admin Sodium Chloride (NS) 1,000 ml @ 1,000 mls/hr Q1H STAT IV 11/09/17 11:00 11/09/17 11:59 DC 11/09/17 12:06 Morphine Sulfate (morphine) 4 mg ONCE STAT IV 11/09/17 11:00 11/09/17 11:01 DC 11/09/17 12:10 Ondansetron HCl (Zofran Inj) 4 mg ONCE STAT IV 11/09/17 11:00 11/09/17 11:01 DC 11/09/17 12:08 Dicyclomine HCl (Bentyl) 10 mg ONCE ONCE IM 11/09/17 11:00 11/09/17 11:01 DC 11/09/17 12:53 Procedures/MDM EKG, MONITORS, & DIAGNOSTIC IMAGING: CT abdomen and pelvis: IMPRESSION: No evidence of urolithiasis, obstructive uropathy, diverticulitis or appendicitis. Question TURP defect prostate. Clinical correlation suggested. Old granulomatous disease. LAB INTERPRETATION: No significant leukocytosis, evidence of dehydration or hepatobiliary obstruction MEDICAL DECISION MAKING: The patient presents with generalized abdominal pain that is most likely viral process. However given the patient's age, history of diabetes, concern for possible acute intra-abdominal process such as obstruction would be reasonable. CT imaging would be appropriate. ER COURSE: The patient was given IV fluids, Bentyl, pain medication. The patient has a dramatic improvement of his symptoms. His laboratory testing and diagnostic imaging is otherwise unrevealing. In the end this is most likely a viral process. The patient can tolerate oral intake and I believe can be safely discharged home with oral hydration. We discussed return precautions including worsening symptoms, worsening pain, inability to tolerate oral intake. I kept the patient and/or family informed of laboratory and diagnostic imaging results throughout the emergency room course. DISPOSITION PLAN: We discussed follow up with the patient's primary care doctor within 24 to 48 hours as needed. We also discussed return to the emergency room for worsening symptoms or worsening condition. Outpatient referral: [None required] Discharge Medications: Zofran, Bentyl Departure Diagnosis: Primary Impression: Diarrhea Diarrhea type: unspecified type Qualified Code: R19.7 - Diarrhea, unspecified type Additional Impression: Abdominal pain Abdominal location: generalized Qualified Code: R10.84 - Generalized abdominal pain Condition: Stable Patient Instructions: Abdominal Pain, Treating Diarrhea Referrals: COMMUNITY CLINICS YOU HAVE RECEIVED A MEDICAL SCREENING EXAM AND THE RESULTS INDICATE THAT YOU DO NOT HAVE A CONDITION THAT REQUIRES URGENT TREATMENT IN THE EMERGENCY DEPARTMENT. FURTHER EVALUATION AND TREATMENT OF YOUR CONDITION CAN WAIT UNTIL YOU ARE SEEN IN YOUR DOCTORS OFFICE WITHIN THE NEXT 1-2 DAYS. IT IS YOUR RESPONSIBILITY TO MAKE AN APPOINTMENT FOR FOLOW-UP CARE. IF YOU HAVE A PRIMARY DOCTOR --you should call your primary doctor and schedule an appointment IF YOU DO NOT HAVE A PRIMARY DOCTOR YOU CAN CALL OUR PHYSICIAN REFERRAL HOTLINE AT IF YOU CAN NOT AFFORD TO SEE A PHYSICIAN YOU CAN CHOSE FROM THE FOLLOWING [facility] [address] [facility] [address] [facility] [address] [facility] [address] [facility] [address] [facility]. [facility] [address] [facility] [address] [facility] YOU HAVE RECEIVED A MEDICAL SCREENING EXAM AND THE RESULTS INDICATE THAT YOU DO NOT HAVE A CONDITION THAT REQUIRES URGENT TREATMENT IN THE EMERGENCY DEPARTMENT. FURTHER EVALUATION AND TREATMENT OF YOUR CONDITION CAN WAIT UNTIL YOU ARE SEEN IN YOUR DOCTORS OFFICE WITHIN THE NEXT 1-2 DAYS. IT IS YOUR RESPONSIBILITY TO MAKE AN APPOINTMENT FOR FOLOW-UP CARE. IF YOU HAVE A PRIMARY DOCTOR --you should call your primary doctor and schedule and appointment IF YOU DO NOT HAVE A PRIMARY DOCTOR YOU CAN CALL OUR PHYSICIAN REFERRAL HOTLINE AT . IF YOU CAN NOT AFFORD TO SEE A PHYSICIAN YOU CAN CHOSE FROM THE FOLLOWING [facility]: [facility] [address] [place] [address] [facility] [address] [place] [address] [facility] [address] [place] [address] Additional Instructions: Call your primary care doctor TOMORROW for an appointment during the next 1 WEEK.Tell the secretary administrative assistant that you were referred from this facility.See the doctor sooner or return here if your condition worsens before your appointment time. NELIDA GOLDSMITH MD Nov 09, 2017 13:23
== END 2017-11-09 13:42 | disposition home or self-care (01) ==
LOC: E/R 09:44
DX: R19.7 Diarrhea, unspecified (principal); R10.84 Generalized abdominal pain; E11.9 Type 2 diabetes mellitus without complications; F17.210 Nicotine dependence, cigarettes, uncomplicated; Z79.4 Long term (current) use of insulin; Z79.82 Long term (current) use of aspirin; Z79.84 Long term (current) use of oral hypoglycemic drugs
CPT/HCPCS: 36415; 74176; 80053; 83690; 85025; 96372; 96374; 96375; 99285; J0500; J2270; J2405; J7030

== ENCOUNTER 2018-02-07 20:29 | Emergency (ER) | END 2018-02-08 00:30 | disposition left against medical advice (07) ==

== ENCOUNTER 2019-06-26 19:05 | Emergency (ER) | payer MEDICARE, OTHER ==
[~2019-06-26] VITALS: Ht 162.6 cm; Wt 69.5 kg
[~2019-06-26 19:05] MED LIST changes: -AMLO1TAB PO; +AMLO1TAB92 PO; -ASPI-664 PO; +ASPI-817 PO; +DICY10CA40 PO; -EZET10TA3 PO; +EZET10TA31 PO; +HYDR-4011 PO; -HYDR-906 PO; +IBUP-1561 PO; -IBUP400T22 PO; +ONDA4TAB14 PO
[2019-06-26 19:22] VITALS: Ht 162.6 cm; Wt 69.5 kg
--- NOTE | 2019-06-26 22:15 | ERD ---
ER Documentation Chief Complaint Chief Complaint abdominal pain HPI The patient is a 69-year-old male, presenting to the ER because of chronic abdominal pain, worse for the last month, worse after eating, complains of nausea but no vomiting, intermittent, associated with constipation. He denies fever, chills, neck pain, chest pain, dyspnea, dysuria. He does smoke and drinks socially Past medical history: Diabetes mellitus, hypertension, anxiety, dyslipidemia, CAD, chronic abdominal pain, hemorrhoids Past surgical history: Appendectomy, TURP, last colonoscopy was 2 years ago when he had polypectomy ROS All systems reviewed and are negative except as per history of present illness. Medications Home Meds Active Scripts Bisacodyl* (Dulcolax*) 5 Mg Tablet.dr, 10 MG PO DAILY PRN for CONSTIPATION, #4 TAB Prov:JO-ANN NIXON MD 06/27/19 Polyethylene Glycol* (Miralax*) 17 Gm Powd.pack, 17 GM PO DAILY for constipation, #30 PACKET Prov:JO-ANN NIXON MD 06/27/19 Ondansetron (Ondansetron Odt) 4 Mg Tab.rapdis, 4 MG PO Q6H PRN for NAUSEA AND/OR VOMITING, #30 TAB Prov:NELIDA GOLDSMITH MD 11/09/17 Dicyclomine HCl (Dicyclomine HCl) 10 Mg Capsule, 10 MG PO QID PRN for abdominal cramping, #30 CAP Prov:NELIDA GOLDSMITH MD 11/09/17 Hydrocodone/Acetaminophen ([place] 5-325 Tablet) 1 Each Tablet, 1 TAB PO Q6H PRN for PAIN, #15 TAB Prov:ANNAMARIE MURILLO PA-C 08/24/17 Ibuprofen* (Motrin*) 400 Mg Tab, 400 MG PO Q6, #30 TAB Prov:ANNAMARIE MURILLO PA-C 08/24/17 Hydrocodone/Acetaminophen ([place] 5-325 Tablet) 1 Each Tablet, 1 EACH PO Q6 PRN for PAIN LEVEL 6-10, #7 TAB Prov:GABE AYERS MD 02/10/17 Cyclobenzaprine Hcl* (Cyclobenzaprine Hcl*) 5 Mg Tablet, 5 MG PO Q8H PRN for MUSCLE SPASMS, #20 TAB Prov:GABE AYERS MD 02/10/17 Reported Medications Zolpidem Tartrate* (Zolpidem Tartrate*) 5 Mg Tablet, 5 MG PO QHS PRN for INSOMNIA, #30 TAB 10/18/16 Glimepiride* (Glimepiride*) 4 Mg Tablet, 4 MG PO WITH BREAKFAST DINNE, TAB 10/18/16 Metoprolol Tartrate* (Lopressor*) 25 Mg Tablet, 25 MG PO BID, #60 TAB 10/18/16 Aspirin* (Aspirin* EC) 81 Mg Tablet.dr, 81 MG PO DAILY, TAB 10/18/16 Lorazepam* (Lorazepam*) 0.5 Mg Tablet, 0.5 MG PO BID PRN for ANXIETY, TAB 10/18/16 Ezetimibe* (Zetia*) 10 Mg Tablet, 10 MG PO DAILY, TAB 10/18/16 Insulin Glargine* (Lantus*) 100 Unit/Ml Soln, 15 UNIT SC BID, #1 VIAL 10/18/16 Simvastatin* (Zocor*) 40 Mg Tablet, 40 MG PO QHS, #30 TAB 10/18/16 Amlodipine Bes/Olmesartan Med (Sofia 10-40 mg Tablet) 1 Each Tablet, 1 EACH PO DAILY, TAB 10/18/16 Dicyclomine Hcl* (Bentyl*) 20 Mg Tablet, 20 MG PO TID, TAB 10/18/16 Dulaglutide (Trulicity) 0.75 Mg/0.5 Ml Pen.injctr, 0.75 MG SQ Q2 WEEKS 10/18/16 Esomeprazole Mag Trihydrate (Nexium) 40 Mg Capsule.dr, 40 MG PO DAILY, #30 CAP 10/18/16 Allergies Allergies: Coded Allergies: No Known Drug Allergy (Verified Allergy, Unknown, 02/09/17) PMhx/Soc History of Surgery: Yes (kyra cataracts, prostate, appendectomy) Anesthesia Reaction: No Hx Neurological Disorder: No Hx Respiratory Disorders: No Hx Cardiac Disorders: No Hx Psychiatric Problems: No Hx Miscellaneous Medical Probl: Yes (diabetic) Hx Alcohol Use: No Hx Substance Use: No Hx Tobacco Use: Yes Physical Exam Vitals Vital Signs Date Temp Pulse Resp B/P (MAP) Pulse Ox O2 O2 Flow FiO2 Time Delivery Rate 06/27/19 74 14 141/70 99 Room Air 01:00 (93) 06/26/19 68 14 166/88 96 Room Air 23:00 (114) 06/26/19 97.5 88 18 179/86 98 19:22 (117) Physical Exam Const: No acute distress. Head: Atraumatic. Eyes: Normal Conjunctiva. ENT: Normal External Ears, Nose and Mouth. Neck: Full range of motion. No meningismus. Resp: Clear to auscultation bilaterally. Cardio: Regular rate and rhythm. Abd: Soft, non distended, normal bowel sounds, vague and diffuse abdominal discomfort, no rigidity/rebound/CVA tenderness Skin: No petechiae or rashes. Back: No midline or flank tenderness. Ext: No cyanosis, or edema. Neur: Awake and alert. No focal deficit Psych: Normal Mood and Affect. Result Diagram: 06/26/19 2303 06/26/19 2303 Results 24 hrs Laboratory Tests Test 06/26/19 23:03 06/26/19 23:21 White Blood Count 5.6 10^3/ul Red Blood Count 5.21 10^6/ul Hemoglobin 15.5 g/dl Hematocrit 47.1 % Mean Corpuscular Volume 90.4 fl Mean Corpuscular Hemoglobin 29.8 pg Mean Corpuscular Hemoglobin Concent 32.9 g/dl Red Cell Distribution Width 13.6 % Platelet Count 198 10^3/UL Mean Platelet Volume 10.7 fl Immature Granulocytes % 0.500 % Neutrophils % 63.1 % Lymphocytes % 26.4 % Monocytes % 7.4 % Eosinophils % 2.2 % Basophils % 0.4 % Nucleated Red Blood Cells % 0.0 /100WBC Immature Granulocytes # 0.030 10^3/ul Neutrophils # 3.5 10^3/ul Lymphocytes # 1.5 10^3/ul Monocytes # 0.4 10^3/ul Eosinophils # 0.1 10^3/ul Basophils # 0.0 10^3/ul Nucleated Red Blood Cells # 0.0 10^3/ul Sodium Level 145 mmol/L Potassium Level 3.7 mmol/L Chloride Level 105 mmol/L Carbon Dioxide Level 31 mmol/L Anion Gap 9 Blood Urea Nitrogen 22 mg/dl Creatinine 0.97 mg/dl Est Glomerular Filtrat Rate mL/min > 60 mL/min Glucose Level 111 mg/dl Calcium Level 9.4 mg/dl Total Bilirubin 0.9 mg/dl Direct Bilirubin 0.00 mg/dl Indirect Bilirubin 0.9 mg/dl Aspartate Amino Transf (AST/SGOT) 26 IU/L Alanine Aminotransferase (ALT/SGPT) 26 IU/L Alkaline Phosphatase 49 IU/L Total Protein 7.7 g/dl Albumin 4.3 g/dl Globulin 3.40 g/dl Albumin/Globulin Ratio 1.26 Lipase 114 U/L Bedside Urine pH (LAB) 5.5 Bedside Urine Protein (LAB) Trace Bedside Urine Glucose (UA) Negative Bedside Urine Ketones (LAB) Negative Bedside Urine Blood Trace-lysed Bedside Urine Nitrite (LAB) Negative Bedside Urine Leukocyte Esterase (L Trace Procedures/MDM [place] [address] Radiology Main Line: [phone] DIAGNOSTIC IMAGING REPORT Patient: AKIN SERVIN : 1950 Age: 69 Sex: M MR #: [id number] DOS: 06/26/19 2223 Ordering MD: JO-ANN NIXON MD Location: E/R Room/Bed: PROCEDURE: CT Abdomen and pelvis without contrast. CLINICAL INDICATION: Abdominal pain. TECHNIQUE: CT scan of the abdomen and pelvis was performed on a multi- detector high-resolution CT scanner. Contiguous axial images were obtained from the lung bases to the ischial tuberosities without intravenous contrast. Coronal and sagittal reformatted images were also obtained. Images were reviewed on the PACS workstation. DICOM images are available. One or more of the following dose reduction techniques were used: - Automated exposure control. - Adjustment of the mA and/or kV according to patient size. - Use of iterative reconstruction technique. Exam CTD/vol = 6.97 mGy. Total exam DLP = 417.51 mGy-cm. COMPARISON: 11/09/2017. FINDINGS: Evaluation of the lung bases demonstrates a stable 5 mm nodule within the right lower lobe. There is a small metallic density within the lingula. Abdomen: The liver is normal in size. There is no focal mass or dilatation of the biliary tree. The gallbladder is not distended. The spleen, pancreas and bilateral adrenal glands are within normal limits. Bilateral kidneys are normal in size with no contour deforming mass identified. There is no radiopaque renal or ureteral calculus identified. There is no hydronephrosis or hydroureter. There is no retroperitoneal adenopathy. The abdominal aorta is of normal caliber with scattered atherosclerotic calcifications. There is moderate retained stool within the colon. There is no bowel obstruction or free air. A normal appendix is identified. There is no diverticulosis or diverticulitis. There is no ascites. Pelvis: The bladder is unremarkable. The prostate and seminal vesicles are within normal limits. There is no significant pelvic adenopathy or free fluid. Evaluation of the osseous structures demonstrates no suspicious lytic or blastic lesion. IMPRESSION: No acute abnormality identified within the abdomen and pelvis. Moderate retained stool within the colon. Vascular calcifications reflective of atherosclerosis. Stable right lower lobe 5 mm nodule. .Leno Lombardi MD, MD Date Time Electronically viewed and signed by .Leno Lombardi MD, MD on 06/26/2019 23:19 .T/ CC: JO-ANN NIXON MD [phone] MEDICAL MAKING DECISION: The patient is a 69-year-old male, presenting with chronic abdominal pain, exacerbated by constipation, right lung nodule He is stable for outpatient follow-up The differential diagnoses considered include but are not limited to cholelithiasis, cholecystitis, choledocholithiasis, cholangitis, pancreatitis, hepatitis, gastritis, peptic ulcer disease, gastric ulcer, cystitis, diverticulitis, partial small bowel obstruction, lung malignancy, pneumonia. Departure Diagnosis: Primary Impression: Abdominal pain Additional Impressions: Constipation Lung nodule Condition: Good Comments He was discharged with MiraLAX and Dulcolax suppository I discussed the findings with the patient. I advised the patient to follow-up with the primary physician in about 1-2 days, sooner if needed and return if any concern. Disclaimer: Inadvertent spelling and grammatical errors are likely due to EHR/dictation software use and do not reflect on the overall quality of patient care. Also, please note that the electronic time recorded on this note does not necessarily reflect the actual time of the patient encounter. JO-ANN NIXON MD Jun 26, 2019 22:14
[2019-06-27] MEDS ORDERED: POLY17PO6 PO (00:55)
[2019-06-27] MEDS ORDERED: BISA-57 PO (00:59)
[2019-06-27 01:00] VITALS: BP 141/70; PULSE 74; RESP 14
== END 2019-06-27 01:10 | disposition home or self-care (01) ==
LOC: E/R 19:05
DX: K59.00 Constipation, unspecified (principal); E11.9 Type 2 diabetes mellitus without complications; I25.10 Atherosclerotic heart disease of native coronary artery without angina pectoris; I10 Essential (primary) hypertension; R91.1 Solitary pulmonary nodule; Z79.82 Long term (current) use of aspirin; Z79.4 Long term (current) use of insulin; Z87.891 Personal history of nicotine dependence
CPT/HCPCS: 36415; 74176; 80053; 81003; 83690; 85025

== ENCOUNTER 2019-07-03 20:08 | Emergency (ER) | payer MEDICARE, OTHER ==
[~2019-07-03] VITALS: Ht 160 cm; Wt 63.3 kg
[~2019-07-03 20:08] MED LIST changes: -AMLO1TAB92 PO; +BISA-57 PO; -CYCL5TAB PO; -DICY10CA40 PO; -DULA0.75 SQ; -ESOM40CA PO; -GLIM4TAB PO; -IBUP-1561 PO; -LANT3I SC; -ONDA4TAB14 PO; +PANT40SU PO; +POLY17PO6 PO; -SIMV40TA2 PO; +SUCR1TAB56 PO
[2019-07-03 20:10] VITALS: Ht 160 cm; Wt 63.3 kg
[2019-07-03] MEDS ORDERED: SOD CHLORIDE 0.9% 1,000 ML IV STA (21:54)
[2019-07-03] MEDS ORDERED: ONDANSETRON 4 MG INJ IV STA (21:54)
[2019-07-03] MEDS ORDERED: LIDOCAINE/MYLANTA 40 ML BTL PO STA (21:54)
[2019-07-03] MEDS ORDERED: morphine 4 MG/ML VIAL IV STA (21:54)
[2019-07-03] MEDS ORDERED: IODIXANOL LOCM 100 ML BTL ONE (22:59)
[2019-07-03] MEDS ORDERED: SOD CHLORIDE 0.9% 100 ML ONE (22:59)
--- NOTE | 2019-07-04 00:28 | ERD ---
ER Documentation Chief Complaint Chief Complaint MID ABDOMINAL PAIN WITH NAUSEA X 1WEEK HPI Patient presented with abdominal pain for the past several days. No nausea or vomiting but has had decreased p.o. No fevers. Normal bowel movements. No history of similar.. Is on Nexium and high blood pressure. No recent travel or antibiotics. ROS All systems reviewed and are negative except as per history of present illness. Medications Home Meds Active Scripts Bisacodyl* (Dulcolax*) 5 Mg Tablet.dr, 10 MG PO DAILY PRN for CONSTIPATION, #4 TAB Prov:JO-ANN NIXON MD 06/27/19 Polyethylene Glycol* (Miralax*) 17 Gm Powd.pack, 17 GM PO DAILY for constipat ion, #30 PACKET Prov:JO-ANN NIXON MD 06/27/19 Reported Medications Zolpidem Tartrate* (Zolpidem Tartrate*) 5 Mg Tablet, 5 MG PO QHS PRN for INSOMNIA, #30 TAB 10/18/16 Metoprolol Tartrate* (Lopressor*) 25 Mg Tablet, 25 MG PO BID, #60 TAB 10/18/16 Aspirin* (Aspirin* EC) 81 Mg Tablet.dr, 81 MG PO DAILY, TAB 10/18/16 Lorazepam* (Lorazepam*) 0.5 Mg Tablet, 0.5 MG PO BID PRN for ANXIETY, TAB 10/18/16 Ezetimibe* (Zetia*) 10 Mg Tablet, 10 MG PO DAILY, TAB 10/18/16 Dicyclomine Hcl* (Bentyl*) 20 Mg Tablet, 20 MG PO TID, TAB 10/18/16 Discontinued Reported Medications Glimepiride* (Glimepiride*) 4 Mg Tablet, 4 MG PO WITH BREAKFAST DINNE, TAB 10/18/16 Insulin Glargine* (Lantus*) 100 Unit/Ml Soln, 15 UNIT SC BID, #1 VIAL 10/18/16 Simvastatin* (Zocor*) 40 Mg Tablet, 40 MG PO QHS, #30 TAB 10/18/16 Amlodipine Bes/Olmesartan Med (Sofia 10-40 mg Tablet) 1 Each Tablet, 1 EACH PO DAILY, TAB 10/18/16 Dulaglutide (Trulicity) 0.75 Mg/0.5 Ml Pen.injctr, 0.75 MG SQ Q2 WEEKS 10/18/16 Esomeprazole Mag Trihydrate (Nexium) 40 Mg Capsule.dr, 40 MG PO DAILY, #30 CAP 10/18/16 Discontinued Scripts Ondansetron (Ondansetron Odt) 4 Mg Tab.rapdis, 4 MG PO Q6H PRN for NAUSEA AND/OR VOMITING, #30 TAB Prov:NELIDA GOLDSMITH MD 11/09/17 Dicyclomine HCl (Dicyclomine HCl) 10 Mg Capsule, 10 MG PO QID PRN for abdominal cramping, #30 CAP Prov:NELIDA GOLDSMITH MD 11/09/17 Hydrocodone/Acetaminophen ([place] 5-325 Tablet) 1 Each Tablet, 1 TAB PO Q6H PRN for PAIN, #15 TAB Prov:ANNAMARIE MURILLO PA-C 08/24/17 Ibuprofen* (Motrin*) 400 Mg Tab, 400 MG PO Q6, #30 TAB Prov:ANNAMARIE MURILLO PA-C 08/24/17 Hydrocodone/Acetaminophen ([place] 5-325 Tablet) 1 Each Tablet, 1 EACH PO Q6 PRN for PAIN LEVEL 6-10, #7 TAB Prov:GABE AYERS MD 02/10/17 Cyclobenzaprine Hcl* (Cyclobenzaprine Hcl*) 5 Mg Tablet, 5 MG PO Q8H PRN for MUSCLE SPASMS, #20 TAB Prov:GABE AYERS MD 02/10/17 Allergies Allergies: Coded Allergies: No Known Drug Allergy (Verified Allergy, Unknown, 02/09/17) PMhx/Soc History of Surgery: Yes Anesthesia Reaction: No Hx Neurological Disorder: No Hx Respiratory Disorders: No Hx Cardiac Disorders: No Hx Psychiatric Problems: No Hx Miscellaneous Medical Probl: No Hx Alcohol Use: Yes (OCCASIONAL DRINKER.) Hx Substance Use: No Hx Tobacco Use: No Smoking Status: Never smoker Physical Exam Vitals Vital Signs Date Temp Pulse Resp B/P (MAP) Pulse Ox O2 O2 Flow FiO2 Time Delivery Rate 07/03/19 97.5 71 18 153/74 98 Nasal 2.0 23:57 (100) Cannula 07/03/19 98.2 108 18 182/93 98 20:10 (122) Physical Exam Const: No acute distress Head: Atraumatic Eyes: Normal Conjunctiva ENT: Normal External Ears, Nose and Mouth. Neck: Full range of motion. No meningismus. Resp: Clear to auscultation bilaterally Cardio: Regular rate and rhythm, no murmurs Abd: Soft, epigastric tenderness no rebound no guarding, non distended. Normal bowel sounds Skin: No petechiae or rashes Back: No midline or flank tenderness Ext: No cyanosis, or edema Neur: Awake and alert Psych: Normal Mood and Affect Result Diagram: 07/03/19215707/03/192157 Results 24 hrs Laboratory Tests Test 07/03/19 21:58 07/03/19 23:30 White Blood Count 6.5 10^3/ul Red Blood Count 5.38 10^6/ul Hemoglobin 15.9 g/dl Hematocrit 48.8 % Mean Corpuscular Volume 90.7 fl Mean Corpuscular Hemoglobin 29.6 pg Mean Corpuscular Hemoglobin Concent 32.6 g/dl Red Cell Distribution Width 13.8 % Platelet Count 226 10^3/UL Mean Platelet Volume 11.2 fl Immature Granulocytes % 0.300 % Neutrophils % 62.9 % Lymphocytes % 27.6 % Monocytes % 6.9 % Eosinophils % 1.8 % Basophils % 0.5 % Nucleated Red Blood Cells % 0.0 /100WBC Immature Granulocytes # 0.020 10^3/ul Neutrophils # 4.1 10^3/ul Lymphocytes # 1.8 10^3/ul Monocytes # 0.5 10^3/ul Eosinophils # 0.1 10^3/ul Basophils # 0.0 10^3/ul Nucleated Red Blood Cells # 0.0 10^3/ul Sodium Level 144 mmol/L Potassium Level 4.1 mmol/L Chloride Level 105 mmol/L Carbon Dioxide Level 28 mmol/L Anion Gap 11 Blood Urea Nitrogen 30 mg/dl Creatinine 1.26 mg/dl Est Glomerular Filtrat Rate mL/min 57 mL/min Glucose Level 112 mg/dl Calcium Level 9.6 mg/dl Total Bilirubin 0.8 mg/dl Direct Bilirubin 0.00 mg/dl Indirect Bilirubin 0.8 mg/dl Aspartate Amino Transf (AST/SGOT) 28 IU/L Alanine Aminotransferase (ALT/SGPT) 33 IU/L Alkaline Phosphatase 52 IU/L Total Protein 7.7 g/dl Albumin 4.6 g/dl Globulin 3.10 g/dl Albumin/Globulin Ratio 1.48 Lipase 111 U/L Urine Color STRAW Urine Clarity CLEAR Urine pH 6.0 Urine Specific [place] 1.014 Urine Ketones TRACE mg/dL Urine Nitrite NEGATIVE mg/dL Urine Bilirubin NEGATIVE mg/dL Urine Urobilinogen NEGATIVE mg/dL Urine Leukocyte Esterase NEGATIVE Margie/ul Urine Hemoglobin NEGATIVE mg/dL Urine Glucose NEGATIVE mg/dL Urine Total Protein NEGATIVE mg/dl Current Medications Medications Dose Sig/Danita Start Time Status Last (Trade) Ordered Route PRN Stop Time Admin Dose Reason Admin Sodium 1,000 ml @ Q1H STAT 07/03/19 DC 07/03/19 Chloride 1,000 mls/hr IV 21:54 07/03/19 22:06 22:53 Morphine 4 mg ONCE STAT 07/03/19 DC 07/03/19 Sulfate IV 21:54 07/03/19 22:06 (morphine) 21:56 Ondansetron 4 mg ONCE STAT 07/03/19 DC 07/03/19 HCl (Zofran IV 21:54 07/03/19 22:06 Inj) 21:56 40 ml ONCE STAT 07/03/19 DC 07/03/19 Miscellaneous PO 21:54 07/03/19 22:06 Medication 21:56 (Gi Cocktail (2)) IV Flush 10 ml STK-MED 07/03/19 DC 07/03/19 (NS 10 ml) ONCE .ROUTE 22:59 07/03/19 23:16 23:00 Sodium 100 ml @ ud STK-MED 07/03/19 DC 07/03/19 Chloride ONCE .ROUTE 22:59 07/03/19 23:16 23:00 Iodixanol 100 ml STK-MED 07/03/19 DC 07/03/19 (Visipaque ONCE .ROUTE 22:59 07/03/19 23:16 Locm) 23:00 Procedures/MDM Patient presents with epigastric abdominal pain most likely secondary to dyspepsia versus ulcer or non-acute abdominal etiology. No peritoneal signs on abdominal exam. Patients symptoms near resolved with GI cocktail. Patient remains PO tolerant. Serial abdominal exam without increase in abdominal pain. Given exam and history, low suspicion for acute abdominal process, such as acute cholecystitis, pancreatitis, perforated viscus, atypical appendicitis or torsion. CT abdomen pelvis, and laboratory evaluations revealed no acute anemia or infection or perforation extensive conversation about return precautions and need for follow-up. Departure Diagnosis: Primary Impression: Abdominal pain Condition: Stable JO-ANN VILLAVICENCIO MD Jul 04, 2019 00:28
[2019-07-04 01:10] VITALS: BP 148/92; PULSE 74; RESP 16
== END 2019-07-04 01:06 | disposition home or self-care (01) ==
LOC: E/R 20:08
DX: R10.9 Unspecified abdominal pain (principal); R40.2142 Coma scale, eyes open, spontaneous, at arrival to emergency department; R40.2252 Coma scale, best verbal response, oriented, at arrival to emergency department; R40.2362 Coma scale, best motor response, obeys commands, at arrival to emergency department; Z79.82 Long term (current) use of aspirin
CPT/HCPCS: 36415; 71045; 74177; 80053; 81003; 83690; 85025; 96361; 96374; 96375; 99285; J2270; J2405; J7030; Q9967

== ENCOUNTER 2019-07-28 10:10 | Emergency (ER) | payer MEDICARE, OTHER ==
[~2019-07-28] VITALS: Ht 160 cm; Wt 67.2 kg
[~2019-07-28 10:10] MED LIST changes: +CIPR500T4 PO; +DIPH1TAB PO; +ESOM40CA PO; +HYDR-3672 PO; +HYDR-3980 PO; +INSU100I33 SC; +METO-448 PO; +METR500T PO; +SITA50TA2 PO; +VALS1TAB82 PO
[2019-07-28 10:16] VITALS: Ht 160 cm; Wt 67.2 kg
[2019-07-28] MEDS ORDERED: HYDROmorphONE 1 MG/ML SYG IV STA (10:50)
[2019-07-28] MEDS ORDERED: ONDANSETRON 4 MG INJ IV STA (10:50)
[2019-07-28] MEDS ORDERED: SOD CHLORIDE 0.9% 1,000 ML IV STA (10:50)
[2019-07-28 14:13] VITALS: BP 167/89; PULSE 72; RESP 20
== END 2019-07-28 14:15 | disposition home or self-care (01) ==
LOC: E/R 10:10
DX: R10.32 Left lower quadrant pain (principal); R19.7 Diarrhea, unspecified; I10 Essential (primary) hypertension; E11.9 Type 2 diabetes mellitus without complications; Z79.4 Long term (current) use of insulin; Z79.82 Long term (current) use of aspirin
CPT/HCPCS: 36415; 74176; 80053; 85025; 96361; 96374; 96375; 99285; J1170; J2405; J7030